=== PATIENT | female | born 2000 | race Two or more races ===

== ENCOUNTER 2022-04-29 21:43 | Emergency (ER) | payer MEDICAID ==
[~2022-04-29] VITALS: Ht 162.6 cm; Wt 104.3 kg
[2022-04-29 21:44] VITALS: BP 95/69
== END 2022-04-30 00:12 | disposition left against medical advice (07) ==
LOC: ER 21:57
DX: R50.9 Fever, unspecified (principal); M79.10 Myalgia, unspecified site; R11.0 Nausea; R19.7 Diarrhea, unspecified; R05.9 Cough, unspecified; Z53.21 Procedure and treatment not carried out due to patient leaving prior to being seen by health care provider

== ENCOUNTER 2024-03-23 10:42 | Emergency (ER) | payer MEDICAID, OTHER ==
[~2024-03-23] VITALS: Ht 162.6 cm; Wt 112.0 kg
[2024-03-23] MEDS ORDERED: EPIN0.054 OP (14:14)
[2024-03-23 14:30] VITALS: BP 124/80; PULSE 90; RESP 20; TEMP 98.7; O2SAT 97
== END 2024-03-23 14:31 | disposition home or self-care (01) ==
LOC: ER 10:42
DX: B30.9 Viral conjunctivitis, unspecified (principal)